=== PATIENT | male | born 1980 | race Caucasian/White ===

== ENCOUNTER 2018-10-11 10:21 | Emergency (ER) | payer SELFPAY ==
[~2018-10-11] VITALS: Ht 175.3 cm; Wt 70.3 kg
[2018-10-11 10:34] VITALS: BP 140/86
[2018-10-11 11:00] LABS: BILIRUBIN,URINE NEGATIVE (NEG); CLARITY,URINE CLEAR; COLOR,URINE YELLOW; NITRITE,URINE NEGATIVE (NEG); PH,URINE 6.5; PROTEIN,URINE NEGATIVE (NEG-TRACE); UROBILINOGEN,URINE 0.2 mg/dL (0.2 mg/dL)
[2018-10-11] MEDS ORDERED: metroNIDAZOLE 500 MG TABLET PO ONE (11:00)
[2018-10-11] MEDS ORDERED: cefTRIAXone IM 250 MG VIAL IM ONE (11:00)
[2018-10-11] MEDS ORDERED: AZITHROMYCIN 250 MG TABLET. PO ONE (11:00)
[2018-10-11 11:10] LABS: SQUAMOUS EPITHELIAL CELL,UR FEW /LPF
[2018-10-11 11:11] LABS: BACTERIA,URINE 0 /HPF (0-FEW)
--- NOTE | 2018-10-11 11:16 | PHYS DOC ---
Past Medical History Past Medical History: No Pertinent History Past Surgical History: No Surgical History Alcohol Use: Occasionally Drug Use: None Adult General Chief Complaint Chief Complaint: SEXUALLY TRANSMITTED DISEASE HPI HPI Patient is a 38 year old with no significant medical history presents to the ED today requesting to be treated for STDs, patient states he had unprotected sex with another female partner who informed him he was diagnosed with Trichomonas hence patient would like to be treated. Patient denies any symptoms. Review of Systems Review of Systems Constitutional: Denies fever or chills [] GI: Denies abdominal pain, nausea, vomiting, bloody stools or diarrhea [] : STD concerns. Denies dysuria or hematuria [] Musculoskeletal: Denies back pain or joint pain [] Integument: Denies rash or skin lesions [] Neurologic: Denies headache, focal weakness or sensory changes [] All other systems were reviewed and found to be within normal limits, except as documented in this note. Current Medications Current Medications Current Medications Medications (Trade) Dose Ordered Sig/Hyacinth Start Time Stop Time Status Last Admin Dose Admin Azithromycin (Zithromax) 1,000 mg 1X ONCE 10/11/18 11:00 10/11/18 11:01 DC Ceftriaxone Sodium (Rocephin Im) 250 mg 1X ONCE 10/11/18 11:00 10/11/18 11:01 DC Metronidazole (Flagyl) 2,000 mg 1X ONCE 10/11/18 11:00 10/11/18 11:01 DC Allergies Allergies Allergies Coded Allergies Type Severity Reaction Last Updated Verified No Known Drug Allergies 06/24/14 No Physical Exam Physical Exam Constitutional: Well developed, well nourished, no acute distress, non-toxic appearance. [] Abdomen: Bowel sounds normal, soft, no tenderness, no masses, no pulsatile masses. [] Skin: Warm, dry, no erythema, no rash. [] Back: No tenderness, no CVA tenderness. [] Extremities: No tenderness, no cyanosis, no clubbing, ROM intact, no edema. [] Neurologic: Alert and oriented X 3, normal motor function, normal sensory function, no focal deficits noted. [] Psychologic: Affect normal, judgement normal, mood normal. [] Current Patient Data Vital Signs Vital Signs Date Time Temp Pulse Resp B/P (MAP) Pulse Ox O2 Delivery O2 Flow Rate FiO2 10/11/18 10:34 98.0 82 16 140/86 (104) 98 Room Air 98.0 EKG EKG [] Radiology/Procedures Radiology/Procedures [] Course & Med Decision Making Course & Med Decision Making Pertinent Labs and Imaging studies reviewed. (See chart for details) This is a 38-year-old male patient presenting to the ED today with STD concern specifically Trichomonas. Heart no was diagnosed with Trichomonas. Patient was treated prophylaxis in the ED. STD education provided. Dragon Disclaimer Dragon Disclaimer This electronic medical record was generated, in whole or in part, using a voice recognition dictation system. Departure Departure Impression: Primary Impression: Concern about sexually transmitted disease in male without diagnosis Disposition: HOME, SELF-CARE Condition: STABLE Referrals: NO PCP (PCP) follow up with the health department for STD concern Patient Instructions: Sexually Transmitted Disease Additional Instructions: You were treated for sexually transmitted diseases, please use protection at all times, do not have any sexual intercourse for week. Follow-up with the health department for further STD concerns, inform all your partners nose you were treated for STDs ARYAN CARR APRN Oct 11, 2018 11:16
== END 2018-10-11 11:26 | disposition home or self-care (01) ==
LOC: ER 10:21
DX: Z20.2 Contact with and (suspected) exposure to infections with a predominantly sexual mode of transmission (principal)
CPT/HCPCS: 81001; 87491; 87591; 96372; 99284; J0696; Q0144